=== PATIENT | male | born 1990 | race Caucasian/White ===

== ENCOUNTER 2019-01-15 05:32 | Emergency (ER) | payer MEDICAID, OTHER ==
[~2019-01-15] VITALS: Ht 172.7 cm; Wt 88.6 kg
[2019-01-15] MEDS ORDERED: VIVI380I IM (05:40)
[2019-01-15] MEDS ORDERED: NS 1,000 ML IV ONE ×2 (05:45→08:30)
[2019-01-15] MEDS ORDERED: METOCLOPRAMIDE INJ 10MG/2ML VIAL (J2765) IV ONE (05:45)
[2019-01-15 06:06] LABS: BASO % 0.3 % (0.0-1.0); EOS # 0.1 10^3/uL (0.0-0.50); EOS % 0.5 % (0.0-3.0); HEMATOCRIT 47.9 % (42.0-52.0); HEMOGLOBIN 16.5 g/dl (13.5-17.5); LYMPH # 1.9 10^3/uL (1.5-4.5); LYMPH % 16.2 % (24.0-44.0); MEAN CORPUSCULAR HEMOGLOBIN 32.5 pg (27.0-33.0); MEAN CORPUSCULAR HGB CONC 34.4 g/dl (32.0-36.5); MEAN CORPUSCULAR VOLUME 94.5 fl (80.0-96.0); MONO # 0.9 10^3/uL (0.0-0.8); MONO % 7.5 % (0.0-5.0); NEUTROPHILS # 8.7 10^3/uL (1.8-7.7); NEUTROPHILS % 75.1 % (36.0-66.0); PLATELET COUNT, AUTOMATED 235 10^3/uL (150-450); RED BLOOD COUNT 5.07 10^6/uL (4.30-6.10); WHITE BLOOD COUNT 11.6 10^3/uL (4.0-10.0)
[2019-01-15] MEDS ORDERED: HALOPERIDOL 5 MG/ML VIAL (J1630) IV STA (06:19)
[2019-01-15] MEDS ORDERED: diphenhydrAMINE INJ 50MG/ML VIAL (J1200) IV STA (06:19)
[2019-01-15 07:07] LABS: ALBUMIN 3.7 GM/DL (3.2-5.2); ALT/SGPT 71 U/L (12-78); BILIRUBIN,DIRECT 0.1 MG/DL (0.0-0.2); BILIRUBIN,TOTAL 0.3 MG/DL (0.2-1.0); BLOOD UREA NITROGEN 12 MG/DL (7-18); CALCIUM LEVEL 8.8 MG/DL (8.5-10.1); CARBON DIOXIDE LEVEL 31 MEQ/L (21-32); CHLORIDE LEVEL 107 MEQ/L (98-107); CREATININE FOR GFR 0.96 MG/DL (0.70-1.30); GLOMERULAR FILTRATION RATE > 60.0 (>60); GLUCOSE, FASTING 111 MG/DL (70-100); LIPASE 92 U/L (73-393); POTASSIUM SERUM 3.8 MEQ/L (3.5-5.1); SODIUM LEVEL 142 MEQ/L (136-145); TOTAL PROTEIN 7.3 GM/DL (6.4-8.2)
[2019-01-15] MEDS ORDERED: ISOVUE-370 76% 100ML VIAL (Q9967) As Ordered ONE (08:27)
[2019-01-15] MEDS ORDERED: KETOROLAC 30 MG/ML VIAL (J1885) IV ONE (08:30)
[2019-01-15] MEDS ORDERED: PROMETHAZINE INJ 25 MG/ML VIAL (J2550) IV ONE (08:30)
--- NOTE | 2019-01-15 09:57 | REP ---
CT ABDOMEN AND PELVIS WITH CONTRAST: HISTORY: Abdominal pain. CONTRAST: Isovue 370, 100 mL. COMPARISON: 04/29/2009 The liver, gallbladder, spleen, adrenal glands and kidneys are normal in appearance. There is no mass, adenopathy or free fluid. The visualized lungs are clear. There is minimal thickening of the wall of several loops of small intestine. There are no dilated loops of intestine. The prostate gland and urinary bladder are normal in appearance. T there is no fracture or subluxation. IMPRESSION: There is minimal thickening of several loops of small intestine. This may represent an inflammatory process . Electronically Signed by Piyush Austin MD 01/15/2019 10:08 A
[2019-01-15] MEDS ORDERED: ZOFR4TAB16 PO (12:49)
[2019-01-15 13:11] VITALS: BP 138/77
[2019-01-15 13:27] LABS: AMPHETAMINES LEVEL URINE NEGATIVE (NEGATIVE); BARBITURATES URINE NEGATIVE (NEGATIVE); BENZODIAZEPINES URINE NEGATIVE (NEGATIVE); CANNABINOIDS URINE NEGATIVE (NEGATIVE); COCAINE METABOLITE URINE NEGATIVE (NEGATIVE); METHADONE URINE NEGATIVE (NEGATIVE); OPIATES URINE NEGATIVE (NEGATIVE); PHENCYCLIDINE URINE NEGATIVE (NEGATIVE)
== END 2019-01-15 13:19 | disposition home or self-care (01) ==
LOC: M ED 05:32
DX: K52.9 Noninfective gastroenteritis and colitis, unspecified (principal); B19.20 Unspecified viral hepatitis C without hepatic coma; Z88.0 Allergy status to penicillin; Z88.5 Allergy status to narcotic agent; Z79.890 Hormone replacement therapy
CPT/HCPCS: 74177; 80048; 80076; 80307; 83690; 85025; 96361; 96374; 96375; 99284; J1200; J1630; J1885; J2765; Q9967

== ENCOUNTER 2025-06-14 16:50 | Emergency (ER) | payer MEDICAID, MEDICARE ==
[~2025-06-14] VITALS: Ht 172.7 cm; Wt 79.9 kg
[~2025-06-14 16:50] MED LIST: VIVI380I IM; ZOFR4TAB16 PO
[2025-06-14] MEDS ORDERED: SUBO8MIS SL (16:58)
[2025-06-14] MEDS ORDERED: LEXA1TAB2 PO (16:58)
[2025-06-14 18:06] LABS: BASO # 0.0 10^3/uL (0.0-0.2); BASO % 0.7 % (0.0-1.0); EOS # 0.1 10^3/uL (0.0-0.5); EOS % 0.9 % (0.0-3.0); LYMPH # 2.0 10^3/uL (1.5-5.0); LYMPH % 36.1 % (24.0-44.0); MONO # 0.6 10^3/uL (0.0-0.8); MONO % 11.3 % (2.0-8.0); NEUTROPHILS # 2.8 10^3/uL (1.5-8.5); NEUTROPHILS % 50.6 % (36.0-66.0); PLATELET COUNT, AUTOMATED 215 10^3/uL (150-450)
[2025-06-14 18:27] LABS: ALT/SGPT 94 U/L (7.0-40); AST/SGOT 64 U/L (<34); CALCIUM LEVEL 8.9 MG/DL (8.5-10.1); CARBON DIOXIDE LEVEL 31 MMOL/L (20-31); CHLORIDE LEVEL 108 MMOL/L (98-107); CK-MB VALUE MASS 4.0 NG/ML (<3.6); CREATININE FOR GFR 1.16 MG/DL (0.70-1.30); GLOMERULAR FILTRATION RATE 83.7 (>60); POTASSIUM SERUM 4.5 MMOL/L (3.5-5.1); SODIUM LEVEL 143 MMOL/L (136-145)
[2025-06-14 18:29] LABS: FREE T4 0.71 NG/DL (0.89-1.76)
[2025-06-14 18:41] LABS: CPK CREATINE PHOSPHOKINASE 228 U/L (46-171); MB/CK RELATIVE INDEX 1.75 (< OR =4)
[2025-06-14] MEDS ORDERED: ISOVUE-370 76% 100 ML VIAL As Ordered ONE (19:26)
[2025-06-14 19:36] LABS: CK-MB VALUE MASS 3.2 NG/ML (<3.6)
[2025-06-14 19:42] LABS: CPK CREATINE PHOSPHOKINASE 201 U/L (46-171); MB/CK RELATIVE INDEX 1.59 (< OR =4)
[2025-06-14 21:00] VITALS: BP 97/58; TEMP 97.4
[2025-06-14 21:15] VITALS: O2SAT 96
== END 2025-06-14 21:25 | disposition left against medical advice (07) ==
LOC: M ED 16:50
DX: R22.43 Localized swelling, mass and lump, lower limb, bilateral (principal); R00.1 Bradycardia, unspecified; I45.10 Unspecified right bundle-branch block; B19.20 Unspecified viral hepatitis C without hepatic coma; F12.10 Cannabis abuse, uncomplicated; Z88.0 Allergy status to penicillin; Z88.5 Allergy status to narcotic agent; Z79.899 Other long term (current) drug therapy; Z53.9 Procedure and treatment not carried out, unspecified reason
CPT/HCPCS: 36415; 80048; 80076; 82550; 82553; 83690; 83880; 84439; 84443; 84484; 85025; 93005; 93041; 93970; 94760; 99285; Q9967